=== PATIENT | male | born 1965 | race Two or more races ===

== ENCOUNTER 2025-07-02 18:05 | Emergency (ER) | payer OTHER, SELFPAY ==
--- NOTE | ~2025-07-02 | XR_ITS ---
CLINICAL HISTORY: laceration 3 view left hand Comparison: None provided Findings: Bones intact. No dislocations. No significant loss of joint space or osteophytes. No erosions. No radiopaque foreign body. IMPRESSION: 1. No acute findings This document has been electronically signed by: Luis Felipe Ramirez MD on 07/02/2025 19:25:00
[2025-07-02 18:27] VITALS: BP 140/77; PULSE 75; RESP 18; TEMP 36.2; O2SAT 99; BMI 27.5
--- NOTE | 2025-07-02 18:27 | ED_ITS ---
HPI - Wound/Laceration General Chief Complaint: Wound/Laceration Stated Complaint: General Medical Time Seen by Provider: 07/02/25 19:43 Source: patient Mode of arrival: ambulatory Limitations: no limitations History of Present Illness ED Provider: Dr. Scott HPI narrative: This is a 59-year-old male sustained a hand laceration of the left hand. Patient went to urgent care. Urgent care sent the patient's here because of the depth of the laceration. Patient stated that the urgent care was worried about the depth of the wound that may be involving deeper injury. He is able to have full range of motion of his left thumb. Patient stated that he was cutting meat when this occurred. Tetanus shot was up-to-date by triage Related Data Allergies Allergy/AdvReac Type Severity Reaction Status Date / Time No Known Allergies Allergy Verified 07/02/25 18:29 Review of Systems Review of Systems: Pertinent review of systems as mentioned in HPI. All other system otherwise negative. [facility] [place] Past Medical History [facility] [place] Narrative: None Medical History (Updated 07/02/25 @ 21:14 by Sarah Scott DO) No known health problems Social History Social History Smoked in Last 30 Days: No Use of substances other than those prescribed or required for medical reasons: No Advance Directives: No Advance Directives Information Provided: No Physical Exam Exam: Exam: General: Pleasant, no distress, interacting appropriately Head: Normacephalic, atraumatic Extremities: 3 cm laceration over the base of his thumb. Full range of motion. CMS intact otherwise low suspicion for tendon injury Neurological: Awake and alert, no facial droop noted Skin: Warm and dry Psychiatric: Appropriate mood and thoughts Vital Signs: Vital Signs: Last Vital Signs Temp 97.1 F 07/02/25 21:20 Pulse 75 07/02/25 21:20 Resp 18 07/02/25 21:20 BP 140/77 H 07/02/25 21:20 Pulse Ox 99 07/02/25 21:20 O2 Del Method Room Air 07/02/25 21:20 BMI result Body Mass Index 27.5 Course Course Course Narrative: This is an RME: Additional HPI, ROS, PE not included below will be deferred to primary provider. RME assessment and note performed by: Nayely Rivera PA-C This is a 59 year old male, with no known medical problems, who presents to the ER with a complaint of left hand laceration which occurred just [employer]. Reports that he accidentally cut his hand on a knife while cutting meat. He went to an urgent care and they were concerned for nerve involvement therefore was sent here. unsure last tdap. wound is wrapped . moving all digits, sensation intact Plan: tdap, xray further ER eval needed Medications Administered Discontinued Medications Generic Name Dose Route Start Last Admin Trade Name Freq PRN Reason Stop Dose Admin Diphtheria/Tetanus/Acell Pertussis 0.5 ml 07/02/25 18:30 07/02/25 20:10 Diphth,Pertus(Acell),Tet Adult 0.5 Ml Syringe IM 07/02/25 18:31 0.5 ml .ONCE ONE Administration Lidocaine/Epinephrine 10 ml 07/02/25 19:44 07/02/25 20:16 Lidocaine Hcl 1%/Epi 1:100,000 20 Ml Vial INFILTRATI 07/02/25 19:45 10 ml ONCE ONE Administration Medical Decision Making Medical Decision Making MDM Narrative: This is a 59-year-old male presented hospital today for laceration of the left hand. Patient's laceration is not on the finger. It is more so on the left hand close to the base of the thumb. It is near the palmar aspect at the base of the thumb. Lidocaine with epinephrine was used for anesthesize. This wound was irrigated. Six simple interrupted stitches. Tdap updated Patient will be discharged home Differential Diagnosis Differential Diagnoses: The differential diagnosis associated with the presentation includes Hand laceration, tendon injury Independent Interpretation I performed an independent interpretation of an: Plain X-Ray Radiology Impression Discussion of test interpretation with radiology: I have reviewed the radiologist's reading. Radiologist Impression: Negative x-ray Discharge Plan Discharge Clinical Impression: Laceration Patient Disposition: Home, Self-Care Instructions: Care For Your Stitches (ED) Additional Instructions: I placed 6 stitches into your left hand. Please follow up for removal in 10-14 days. Watch for any signs of infection. Keep it clean dry Interventions: ED Discharge Assessment Last Done: 07/02/25 21:20 Discharge Date/Time: 07/02/25 21:20 Print Language: Kyrgyz
--- NOTE | 2025-07-02 20:03 | PC.NURSE ---
Pt ambulatory to [facility]H from triage assumed care of pt at this time. A&Ox3 skin pwd respirations even unlabored. Sent from for further eval of lac to left hand. Bleeding controlled with dressing at this time. Awaiting provider eval and TDaP vaccine.
[2025-07-02] MEDS: Diphth,Pertus(ACell),Tet Adult 0.5 ML SYRINGE IM (20:10)
[2025-07-02] MEDS: Lidocaine HCl 1%/Epi 1:100,000 20 ML VIAL 10 ML INFILTRATI (20:16)
--- NOTE | 2025-07-02 21:08 | PC.NURSE ---
Provider to bedside for lac repair.
[2025-07-02 21:20] VITALS: BP 140/77; PULSE 75; RESP 18; TEMP 36.2; O2SAT 99
== END 2025-07-02 21:20 | disposition home or self-care (01) ==
PROVIDERS: Emergency Provider Student in an Organized Health Care Education/Training Program
DX: S61.012A Laceration without foreign body of left thumb without damage to nail, initial encounter (principal); W26.0XXA Contact with knife, initial encounter; Y93.89 Activity, other specified; Y92.9 Unspecified place or not applicable; Y99.8 Other external cause status; Z23 Encounter for immunization
CPT/HCPCS: 12002; 73130; 90471; 90715; 99284; J2004

== ENCOUNTER → 2025-07-02 18:30 | Outpatient (BNV) | payer OTHER, SELFPAY | PROVIDERS: Emergency Provider Student in an Organized Health Care Education/Training Program; Visit Provider Radiology Diagnostic Radiology | DX: S61.412A Laceration without foreign body of left hand, initial encounter (principal) | CPT/HCPCS: 73130 ==